=== PATIENT | female | born 1980 | race Asian ===

== ENCOUNTER 2016-08-08 00:15 | Inpatient (IN) | payer SELFPAY ==
[~2016-08-08] VITALS: Ht 160 cm; Wt 64.0 kg
[2016-08-08] MEDS ORDERED: OXYTOCIN 20 UNITS/LR PREMIX 1,000 ML IV PRN (00:25)
[2016-08-08] MEDS ORDERED: PROMETHAZINE 25 MG/ML VIAL IVP PRN (00:25)
[2016-08-08] MEDS ORDERED: AMPICILLIN 2,000 MG in NACL 0.9% MINI-BAG PLUS 100 ML IV SCH (00:25)
[2016-08-08] MEDS ORDERED: METHYLERGONOVINE 0.2 MG/ML AMP IM PRN ×2 (00:25→08:25)
[2016-08-08] MEDS ORDERED: LACTATED RINGERS 1,000 ML IV SCH (00:25)
[2016-08-08] MEDS ORDERED: OXYTOCIN 10 UNITS/ML VIAL IM SCH (00:25)
[2016-08-08] MEDS ORDERED: CARBOPROST 250 MCG/ML AMP IM PRN (00:25)
[2016-08-08] MEDS ORDERED: NALBUPHINE HYDROCHLORIDE 10 MG/ML VIAL IVP PRN (00:25)
[2016-08-08 01:12] LABS: BASOPHILS # (AUTO) 0.1 K/uL (0.00-0.22); EOSINOPHILS # (AUTO) 0.1 K/uL (0-0.4); HEMATOCRIT 34.9 % (36-48); HEMOGLOBIN 11.2 g/dL (12.0-16.0); LYMPHOCYTES # (AUTO) 1.6 K/uL (2.5-16.5); LYMPHOCYTES % (AUTO) 21.8 % (20.5-51.1); MEAN CORPUSCULAR HEMOGLOBIN 28 pg (27-31); MEAN CORPUSCULAR HGB CONC 32 g/dL (33-37); MEAN CORPUSCULAR VOLUME 88 fL (80-94); MONOCYTES # (AUTO) 0.7 K/uL (0.8-1.0); MONOCYTES % (AUTO) 8.9 % (1.7-9.3); NEUTROPHILS # (AUTO) 4.9 K/uL (1.8-7.7); NEUTROPHILS % (AUTO) 67.3 % (42.2-75.2); PLATELET COUNT (AUTO) 249 K/uL (140-450); RED BLOOD CELL COUNT(AUTO) 3.99 MIL/uL (4.20-5.40); RED CELL DISTRIBUTION WIDTH 13.6 % (11.6-13.7); WHITE BLOOD COUNT (AUTO) 7.4 K/uL (4.8-10.8)
[2016-08-08] MEDS ORDERED: MISOPROSTOL 25 MCG TAB ONE (01:40)
[2016-08-08 01:53] LABS: APPEARANCE,URINE CLEAR (CLEAR); BILIRUBIN,URINE NEGATIVE (NEGATIVE); BLOOD, URINE NEGATIVE (NEGATIVE); COLOR,URINE YELLOW (YELLOW); LEUKOCYTE ESTERASE ,URINE TRACE (NEGATIVE); NITRITE, URINE NEGATIVE (NEGATIVE); PROTEIN,URINE NEGATIVE (NEGATIVE); UGLUCOSE NEGATIVE (NEGATIVE)
[2016-08-08] MEDS ORDERED: AMPICILLIN 2,000 MG VIAL ONE (01:53)
[2016-08-08 02:05] LABS: BACTERIA,URINE 1+ /HPF (None Seen); MUCUS,URINE 1+ /LPF (None Seen); RBC,URINE 0-5 (RARE) /HPF (0-5); WBC,URINE 0-5 (RARE) /HPF (0-5)
[2016-08-08 02:47] VITALS: BP 102/62
[2016-08-08] MEDS ORDERED: AMPICILLIN 1,000 MG in NACL 0.9% MINI-BAG PLUS 50 ML IV SCH (04:00)
[2016-08-08] MEDS ORDERED: MISOPROSTOL 25 MCG TAB VG SCH (04:00)
[2016-08-08] MEDS ORDERED: AMPICILLIN 1,000 MG VIAL ONE (05:53)
[2016-08-08] MEDS ORDERED: OXYTOCIN 10 UNITS/ML VIAL ONE (06:29)
[2016-08-08] MEDS ORDERED: LIDOCAINE 1% 50 ML ONE (07:43)
[2016-08-08] MEDS ORDERED: OXYTOCIN 20 UNITS/LR PREMIX 1,000 ML IV ONE (07:51)
--- NOTE | 2016-08-08 08:14 | NUR ---
PATIENT HAS BEEN SCREENED AND CATEGORIZED LOW NUTRITION RISK. PATIENT WILL BE SEEN WITHIN 7 DAYS OF ADMISSION. 08/14/[address]
[2016-08-08] MEDS ORDERED: BENZOCAINE/MENTHOL 20%-0.5% 60 GM CAN TP PRN (08:25)
[2016-08-08] MEDS ORDERED: MEASLES, MUMPS, AND RUBELLA 1 VIAL SQVAC PRN (08:25)
[2016-08-08] MEDS ORDERED: WITCH HAZEL 40 PAD PACKAGE TP PRN (08:25)
[2016-08-08] MEDS ORDERED: HYDROcodone/APAP 5/325 MG 1 TAB TAB PO PRN (08:25)
[2016-08-08] MEDS ORDERED: IBUPROFEN 800 MG TAB PO PRN (08:25)
[2016-08-08] MEDS ORDERED: TEMAZEPAM 15 MG CAP PO PRN (08:25)
[2016-08-08] MEDS ORDERED: oxyCODONE/APAP 5/325 MG 1 TAB TAB PO PRN (08:25)
[2016-08-08] MEDS ORDERED: OXYTOCIN 10 UNITS/ML VIAL IM PRN (08:25)
[2016-08-08] MEDS ORDERED: AMMONIA AROMATIC 1 INHL INH ONE (09:39)
[2016-08-08] MEDS ORDERED: DOCUSATE SOD/SENNA 50/8.6 MG 1 TAB PO SCH (21:00)
[2016-08-09 06:17] LABS: HEMATOCRIT 34.9 % (36-48); HEMOGLOBIN 11.3 g/dL (12.0-16.0)
== END 2016-08-10 12:45 | disposition home or self-care (01) | DRG 775 ==
LOC: MLD 00:15 → MFCC 10:00
PROVIDERS: ADMIT Obstetrics & Gynecology; ATTEND Obstetrics & Gynecology
PROC: 10E0XZZ Delivery of Products of Conception, External Approach (ICD-10-PCS; principal; 2016-08-08)
PROC: 10907ZC Drainage of Amniotic Fluid, Therapeutic from Products of Conception, Via Natural or Artificial Opening (ICD-10-PCS; 2016-08-08)
PROC: 3E0P7GC Introduction of Other Therapeutic Substance into Female Reproductive, Via Natural or Artificial Opening (ICD-10-PCS; 2016-08-08)
PROC: 0HQ9XZZ Repair Perineum Skin, External Approach (ICD-10-PCS; 2016-08-08)
DX: O99.824 Streptococcus B carrier state complicating childbirth (principal); O70.0 First degree perineal laceration during delivery; Z37.0 Single live birth; Z3A.40 40 weeks gestation of pregnancy
CPT/HCPCS: 36415; 81001; 85018; 85025; 86592; 86762; 86886; 86900; 86901; 87086; 87340; J0290; J2001; J2590